=== PATIENT | female | born 1965 | race Caucasian/White ===

== ENCOUNTER 2022-08-31 20:30 | Emergency (ER) | payer MEDICAID ==
[~2022-08-31] VITALS: Ht 165.1 cm; Wt 88.0 kg
[2022-08-31 20:40] VITALS: BP_SYST 154
[2022-08-31 21:20] LABS: BASOPHILS # (AUTO) 0.1 K/uL (0.0-0.2); BASOPHILS % (AUTO) 0.7 % (0.0-2.0); EOSINOPHILS # (AUTO) 0.3 K/uL (0.0-0.4); EOSINOPHILS % (AUTO) 3.7 % (0.0-4.0); HEMATOCRIT 38.9 % (36-48); HEMOGLOBIN 12.7 g/dL (12.0-16.0); LYMPHOCYTES # (AUTO) 1.5 K/uL (1.0-5.5); LYMPHOCYTES % (AUTO) 15.6 % (20.5-51.5); MEAN CORPUSCULAR HEMOGLOBIN 28 pg (27-31); MEAN CORPUSCULAR HGB CONC 33 % (32-36); MEAN CORPUSCULAR VOLUME 85 fL (79.0-98.0); MONOCYTES # (AUTO) 0.6 K/uL (0.0-1.0); MONOCYTES % (AUTO) 6.9 % (1.7-9.3); NEUTROPHILS # (AUTO) 6.8 K/uL (1.8-7.7); NEUTROPHILS % (AUTO) 73.1 % (40.0-70.0); PLATELET COUNT (AUTO) 268 K/uL (130-430); RED BLOOD CELL COUNT(AUTO) 4.57 MIL/uL (4.2-6.2); RED CELL DISTRIBUTION WIDTH 14.2 % (9.0-15.0); WHITE BLOOD COUNT (AUTO) 9.3 K/uL (4.8-10.8)
[2022-08-31 21:43] LABS: ANION GAP 9 (5-15); CALCIUM 9.5 mg/dL (8.4-11.0); CHLORIDE 103 mmol/L (98-107); CREATININE 0.94 mg/dL (0.55-1.30); GLUCOSE 109 mg/dL (70-99); UREA NITROGEN, BLOOD 22 mg/dL (8-21)
[2022-08-31 21:45] LABS: GFR AFRICAN AMERICAN 79 mL/min (>90)
[2022-08-31 21:49] LABS: ALANINE AMINOTRANSFERASE 19 U/L (12-78); ALBUMIN 3.7 g/dL (3.4-4.8); ASPARTATE AMINOTRANSFERASE 17 U/L (10-37); TOTAL BILIRUBIN 0.4 mg/dL (0.0-1.0)
[2022-09-01 00:50] VITALS: BP_SYST 154
== END 2022-09-01 00:50 | disposition home or self-care (01) ==
LOC: SED 20:30
DX: R07.9 Chest pain, unspecified (principal); R06.02 Shortness of breath; R20.2 Paresthesia of skin; Z79.899 Other long term (current) drug therapy
CPT/HCPCS: 36415; 71045; 80053; 84484; 85025; 93005; 99285

== ENCOUNTER 2022-11-01 10:40 | Emergency (ER) | payer MEDICAID ==
[~2022-11-01] VITALS: Ht 165.1 cm; Wt 73.5 kg
[2022-11-01 10:40] VITALS: BP_SYST 132
--- NOTE | 2022-11-01 10:45 | NUR ---
Patient triaged and placed in waiting room. VSS and patient appears in no acute distress at this time. Accompanied by SELF, awaiting available bed, and MD notified of need for MSE.
[2022-11-01 11:49] LABS: BASOPHILS # (AUTO) 0.1 K/uL (0.0-0.2); BASOPHILS % (AUTO) 0.8 % (0.0-2.0); EOSINOPHILS # (AUTO) 0.2 K/uL (0.0-0.4); EOSINOPHILS % (AUTO) 3.2 % (0.0-4.0); HEMATOCRIT 40.7 % (36-48); HEMOGLOBIN 13.1 g/dL (12.0-16.0); LYMPHOCYTES % (AUTO) 15.4 % (20.5-51.5); MEAN CORPUSCULAR HEMOGLOBIN 28 pg (27-31); MEAN CORPUSCULAR HGB CONC 32 % (32-36); MEAN CORPUSCULAR VOLUME 88 fL (79.0-98.0); MONOCYTES # (AUTO) 0.5 K/uL (0.0-1.0); MONOCYTES % (AUTO) 7.6 % (1.7-9.3); NEUTROPHILS # (AUTO) 4.8 K/uL (1.8-7.7); PLATELET COUNT (AUTO) 281 K/uL (130-430); RED BLOOD CELL COUNT(AUTO) 4.64 MIL/uL (4.2-6.2); RED CELL DISTRIBUTION WIDTH 15.2 % (9.0-15.0); WHITE BLOOD COUNT (AUTO) 6.5 K/uL (4.8-10.8)
[2022-11-01 11:58] LABS: ANION GAP 7 (5-15); CALCIUM 9.7 mg/dL (8.4-11.0); CHLORIDE 103 mmol/L (98-107); CREATININE 0.98 mg/dL (0.55-1.30); GFR AFRICAN AMERICAN 75 mL/min (>90); GLUCOSE 111 mg/dL (70-99); UREA NITROGEN, BLOOD 11 mg/dL (8-21)
[2022-11-01 12:04] LABS: ALANINE AMINOTRANSFERASE 16 U/L (12-78); ALBUMIN 3.8 g/dL (3.4-4.8); AMYLASE 34 U/L (0-100); ASPARTATE AMINOTRANSFERASE 12 U/L (10-37); C-REACTIVE PROTEIN QUANT 0.5 mg/dL (0-0.5); LACTATE DEHYDROGENASE 127 U/L (81-234); LIPASE 75 U/L (73-393); TOTAL BILIRUBIN 0.5 mg/dL (0.0-1.0)
[2022-11-01 12:05] LABS: ACETONE, SERUM NEGATIVE (NEGATIVE)
--- NOTE | 2022-11-01 12:40 | NUR ---
BROUGHT BACK TO BED #7 AND TRIAGED. REPORT GIVEN TO LAZ
[2022-11-01 12:51] LABS: BILIRUBIN,URINE 1+ (NEGATIVE); BLOOD, URINE NEGATIVE (NEGATIVE); COLOR,URINE YELLOW (YELLOW); GLUCOSE,URINE NEGATIVE (NEGATIVE); KETONES,URINE TRACE (NEGATIVE); LEUKOCYTE ESTERASE ,URINE NEGATIVE (NEGATIVE); NITRITE, URINE NEGATIVE (NEGATIVE); PH,URINE 5.5 (5.0-8.0); PROTEIN URINE NEGATIVE (NEGATIVE)
[2022-11-01 12:53] LABS: CLARITY/URINE SLIGHTLY HAZY (CLEAR)
--- NOTE | 2022-11-01 13:35 | NUR ---
PT BIB SELF FROM HOME DROVE CAR. PT C/O SEVERE STOMACH PAIN 10/10 WHEN FOOD OR LIQUID IS INGESTED. PT STATES NO FULL MEAN X 7DAYS. PT STATES HAD VERY SMALL BM 10/31. PT STATES 100ML URINE AT 1300. PT SAY SHE "SUSPECTS PARASITE FROM UNDER COOKED SHRIMP" PT VSS WITH RAILS UP
--- NOTE | 2022-11-01 13:40 | NUR ---
ER at bedside examining patient.
[2022-11-01] MEDS ORDERED: OMEP20CA15 PO (13:41)
[2022-11-01] MEDS ORDERED: TRAM50TA2 PO (13:41)
[2022-11-01 14:39] VITALS: BP_SYST 132
--- NOTE | 2022-11-01 14:39 | NUR ---
Patient given written and verbal discharge instructions and verbalizes understanding. ER MD discussed with patient the results and treatment provided. Patient in stable condition. ID arm band removed. Rx of Omeprazole and Tramadol given. Patient educated on pain management and to follow up with PMD. Pain Scale 2/10 Opportunity for questions provided and answered. Medication side effect fact sheet provided.
== END 2022-11-01 14:39 | disposition home or self-care (01) ==
LOC: SED 10:40
DX: R10.13 Epigastric pain (principal); R63.0 Anorexia; Z79.899 Other long term (current) drug therapy
CPT/HCPCS: 36415; 76376; 80053; 81003; 81025; 82009; 82150; 83605; 83615; 83690; 84484; 84703; 85025; 86140; 99284

== ENCOUNTER 2023-03-01 18:37 | Emergency (ER) | payer MEDICAID ==
[~2023-03-01] VITALS: Ht 165.1 cm; Wt 63.5 kg
[~2023-03-01 18:37] MED LIST: OMEP20CA15 PO; TRAM50TA2 PO
[2023-03-01 19:18] VITALS: BP_SYST 127; PULSE 69; RESP 18; TEMP 97.5; O2SAT 97
[2023-03-01] MEDS ORDERED: KETOROLAC TROMETHAMINE 60 MG/2 ML VIAL IM ONE (19:30)
[2023-03-01] MEDS ORDERED: ONDA8TAB60 PO (20:32)
[2023-03-01] MEDS ORDERED: HYDR-3927 PO (20:32)
[2023-03-01] MEDS ORDERED: IBUP-1969 PO (20:32)
[2023-03-01 21:11] VITALS: BP_SYST 125; PULSE 67; RESP 18; O2SAT 97
== END 2023-03-01 21:11 | disposition home or self-care (01) ==
LOC: SED 18:37
DX: M25.561 Pain in right knee (principal); M25.551 Pain in right hip; K21.9 Gastro-esophageal reflux disease without esophagitis; Z79.899 Other long term (current) drug therapy
CPT/HCPCS: 73502; 73564; 99284